=== PATIENT | male | born 1940 | race Caucasian/White ===

== ENCOUNTER 2016-12-06 05:59 | Day surgery (SDC) | payer MEDICARE, OTHER ==
[~2016-12-06 05:59] MED LIST: ASPIRIN EC81 MG PO; TRUSOPT10 ML; XALATAN2.5 M1
== END 2016-12-06 09:45 ==
LOC: ENDOS 05:59 → SHSB 06:01 → ENDOS 07:55
PROC: 0DB68ZX Excision of Stomach, Via Natural or Artificial Opening Endoscopic, Diagnostic (ICD-10-PCS; principal; 2016-12-06)
PROC: 0DJ08ZZ Inspection of Upper Intestinal Tract, Via Natural or Artificial Opening Endoscopic (ICD-10-PCS; 2016-12-06)
PROC: BD41ZZZ Ultrasonography of Esophagus (ICD-10-PCS; 2016-12-06)
DX: K29.50 Unspecified chronic gastritis without bleeding (principal); K31.7 Polyp of stomach and duodenum; C15.5 Malignant neoplasm of lower third of esophagus; M19.90 Unspecified osteoarthritis, unspecified site; F41.9 Anxiety disorder, unspecified; Z79.82 Long term (current) use of aspirin; Z79.899 Other long term (current) drug therapy; Z87.891 Personal history of nicotine dependence; Z98.890 Other specified postprocedural states; Z86.010 Personal history of colon polyps; Z85.828 Personal history of other malignant neoplasm of skin